=== PATIENT | female | born 1955 | race Caucasian/White ===

== ENCOUNTER → 2017-10-27 16:20 | Outpatient (CLI) | payer BC, SELFPAY ==
[2017-10-27 17:17] LABS: Absolute Lymphocyte Count 1.85 X10^3/ul (0.83-4.51); Absolute Neutrophil Count 2.8 X10^3/uL (2.0-7.7); Basophil# 0.03 X10^3/uL; Basophil% 0.5 % (0-1); Eosinophil# 0.17 X10^3/uL; Eosinophils% 3.1 % (0-5); Hematocrit 40.1 % (37-47); Hemoglobin 12.9 g/dl (12.0-15.0); Lymphocyte # 1.85 X10^3/ul (4.0); Lymphocyte % 33.6 % (19-41); Mean Corp Hgb Conc 32.2 g/gl (32-36); Mean Corpuscular Hgb 29.6 pg (27.0-32.0); Monocyte# 0.61 X10^3/uL; Monocyte% 11.1 % (0-10); Neutrophil # 2.84 X10^3/uL (2.7-7.7); Neutrophil % 51.7 % (47-70); Platelet Count 188 K/mm3 (150-450); RBC Distribution Width CV 12.8 % (11.6-14.6); RBC Distribution Width SD 42.9 fl (35.1-43.9); Red Blood Count 4.36 M/mm3 (4.2-5.4); White Blood Count 5.5 K/mm3 (4.4-11.0)
[2017-10-27 17:22] LABS: POSITIVE COUNT NO; POSITIVE DIFFERENTIAL NO; POSITIVE MORPHOLOGY NO
[2017-10-27 18:05] LABS: AST(SGOT) 24 U/L (15-37); Alanine Aminotransfer ALT/SGPT 32 U/L (13-56); Albumin, Serum 3.9 g/dL (3.2-5.0); Alkaline Phosphatase 93 U/L (45-117); Anion Gap 10 (5-15); BUN 16 mg/dL (7-18); BUN/Creat Ratio 20.8 RATIO (10-20); Calcium,Total 8.4 mg/dL (8.5-10.1); Chloride 102 mmol/L (98-107); Creatinine, Serum 0.77 mg/dL (0.55-1.02); EST Glomerular Filtration Rate 80 mL/min (>60); Est Glom Filt Rate - Afr Amer 97 mL/min (>60); Globulin 3.9 g/dL (2.2-4.2); Glucose 95 mg/dL (74-106); Potassium 3.6 mmol/L (3.5-5.1); Protein, Total 7.8 g/dL (6.4-8.2); Sodium Level 140 mmol/L (136-145); Thyroid Stim Hormone (TSH) 3.19 uIU/mL (0.358-3.74)
[2017-10-29 11:16] LABS: Hep C Antibodies <0.1 s/co ratio (0.0-0.9)
== END ==
PROVIDERS: Visit Provider Family Medicine Geriatric Medicine
DX: I10 Essential (primary) hypertension (principal); E55.9 Vitamin D deficiency, unspecified; Z13.89 Encounter for screening for other disorder
CPT/HCPCS: 36415; 80053; 82306; 84443; 85025; 86803

== ENCOUNTER → 2017-10-30 08:14 | Outpatient (CLI) | payer BC, SELFPAY ==
--- NOTE | 2017-10-30 08:18 | US_ITS ---
STUDY: SUPERFICIAL ULTRASOUND - LEFT LOWER LEG SUPERIOR TO THE ANKLE. REASON FOR EXAM: Female, 62 years old. Swelling and palpable abnormality. TECHNIQUE: A superficial ultrasound was performed with real-time and static segovia-scale imaging. COMPARISON: None. FINDINGS: There is a 3.4 cm x 2.3 cm x 0.6 cm fluid collection with low-level echoes within it corresponding to the palpable abnormality along the lateral aspect of the ankle. US/Ext Non Vasc Limited/Soft Tiss IMPRESSION: The abnormality corresponds to a 3.4 cm x 2.3 cm x 0.6 cm fluid collection. Electronically Signed: Jaxson Noonan MD at 14:07 EDT Tel [phone], Service support ,
== END ==
PROVIDERS: Family Provider Family Medicine Geriatric Medicine; PCP Family Medicine Geriatric Medicine; Visit Provider Family Medicine Geriatric Medicine
DX: R22.42 Localized swelling, mass and lump, left lower limb (principal)
CPT/HCPCS: 76882

== ENCOUNTER 2017-12-28 12:30 | Outpatient (RCR) | payer BC, SELFPAY ==
[2017-12-14 14:37] VITALS: BP 162/78; PULSE 70; RESP 16; TEMP 37.5; BMI 26.6
--- NOTE | 2017-12-14 15:57 | HP.PCM_ITS ---
(1) Left leg swelling Status: Chronic Current Visit: Yes Code(s): M79.89 - Other specified soft tissue disorders (2) Leg edema, left Status: Chronic Current Visit: Yes Code(s): R60.0 - Localized edema (3) Rash and nonspecific skin eruption Status: Chronic Current Visit: Yes Code(s): R21 - Rash and other nonspecific skin eruption (4) Chronic venous insufficiency Status: Chronic Current Visit: Yes Code(s): I87.2 - Venous insufficiency ( chronic) (peripheral) (5) Varicose veins with inflammation Status: Chronic Current Visit: Yes Code(s): I83.10 - Varicose veins of unspecified lower extremity with inflammation (6) Hyperlipidemia Status: Chronic Current Visit: No Code(s): E78.5 - Hyperlipidemia, unspecified (7) Overweight (BMI 25.0-29.9) Status: Chronic Current Visit: Yes Code(s): E66.3 - Overweight History of Present Illness Date of Service: 12/14/17 Chief Complaint: Swelling and edema in the left lower extremity associated with an erythematous rash on the left anterior tibial surface. History of Wound: This is a 62-year-old female who was referred by her health care marketing manager, Dr. Betty Landis. The patient presented to Dr. Landis with swelling and edema in her left lower extremity, associated with a rash on the left anterior tibial surface. The patient was treated with topical steroids, and an Unna boot on the left lower extremity, without resolution of her swelling or erythema. A biopsy was performed by Dr. Landis, which presumably showed eczematous dermatitis. According to Dr. Landis's clinical notes, it was felt that the skin changes did not look like eczematous dermatitis and looks to be a necrobiotic lesion. The eczematous area on the left anterior tibial surface was associated with a nearby palpable mass in the subcutaneous area, which was evaluated by ultrasound on October 30, 2017, with an impression of the abnormality corresponds to a 3.4 cm x 2.3 cm x 0.6 cm fluid collection. The patient was subsequently referred by Dr. Betty Landis, to further evaluate the nodule to see if it has any connection with large varicose vein further up on the left medial leg. The patient sleeps on a flat mattress at night. She is very active. She spends very little time during the day in an idle sitting position. The swelling in her left lower extremity has been present for only 2 weeks. The erythematous, eczematous rash on her left lower extremity has been present for approximately 2 years, and is getting worse. Past Medical History Past Medical History: Chronic Problems Left leg swelling (Chronic) Leg edema, left (Chronic) Rash and nonspecific skin eruption (Chronic) Chronic venous insufficiency (Chronic) Varicose veins with inflammation (Chronic) Hyperlipidemia (Chronic) Overweight (BMI 25.0-29.9) (Chronic) Past Medical History: The patient has a history of hepatitis and rheumatoid arthritis. She also has a history of diet-controlled hyperlipidemia. Her history is negative for myocardial infarction, congestive heart failure, cerebrovascular accident, diabetes mellitus, hypertension, pulmonary disease, renal disease, and thyroid disease. Surgical History: - - The patient underwent an appendectomy in the past. She is a Ab0. Allergies/Adverse Reactions: Allergies Penicillins Adverse Reaction (Verified 12/14/17 14:54) Hives Home Medications: Ambulatory Orders Medication Instructions Recorded Multivitamin 12/14/17 - Family History Paternal - - The patient's father is living, age 96, and suffers from heart disease. Patient's mother at age of 87 from old age. Smoking Status: Never smoker Tobacco Use: Non-smoker Alcohol: Rare Drugs: None Review of Systems Constitutional: Denies: Chills, Fever, Weight Change Eyes: Denies: Pain, Vision Change HEENT: Denies: Difficulty Hearing, Difficulty Swallowing, Sinus Congestion Cardiovascular: Denies: Chest Pain, Palpitations Respiratory: Denies: Cough, Shortness of Breath Gastrointestinal: Denies: Diarrhea, Nausea, Vomiting Genitourinary: Denies: Dysuria, Hematuria Endocrine: Denies: Heat/ Cold Intolerance, Polydipsia, Polyuria Hematologic/ Lymphatic: Denies: Easy Bruising, Easy Bleeding - Physical Exam Vital Signs Temp Pulse Resp BP 99.5 F H 70 16 162/78 H 12/14/17 14:37 12/14/17 14:37 12/14/17 14:37 12/14/17 14:37 General: Alert, Oriented x3, Cooperative, No apparent distress, Well developed, Well nourished HEENT: Atraumatic, PERRLA, EOMI, Normocephalic Oral: Moist Mucosa Neck: Supple, No JVD, Negative Carotid Bruits, Negative Hepatojugular Reflux, No Nodes, No Nuchal Rigidity, Trachea Midline Lungs: Clear to auscultation, Normal air movement, No rhonchi, No wheeze, No rales Cardiovascular: Regular rate, Regular Rhythm, Normal S1, Normal S2, No murmurs Abdomen: Soft, Non Tender, Non-Distended Extremities: No clubbing, No cyanosis, No Calf Tenderness, - - Mild swelling and edema is noted in the left lower extremity. Scattered varicosities are noted in the lower extremities bilaterally. Several large varicosities are noted in the distal left medial thigh. A scar from prior trauma is also noted in the distal left medial thigh. An erythematous eczematous rash is noted on the left anterior tibial surface, measuring 5-6 cm in diameter. The skin, however, is intact. There is no wound or ulceration. Inferior to the eczematous rash, there is a subcutaneous fullness, with no overlying skin changes. Wound Measurements and Assessment WC - Nurse 1 - General Ulcer Measurement Start: 12/14/17 14:09 Freq: Status: Active Protocol: Activity Type Activity Date Activity User E-Sign Co-Sign Detail Recorded Client Recorded Date Recorded By Document 12/14/17 14:37 [id number] 12/14/17 14:49 12/14/17 14:37 Wound Center Nurse 1 [Ulcer Assessment] EDEMA -Combined with other wound No [Edema Assessment] -Lower Limb Edema Present Yes -Right Calf (cm) 38.5 -Right Ankle (cm) 22.4 -Left Calf (cm) 39.5 -Left Ankle (cm) 23.5 WC - Nurse 2 - General Ulcer CM Notes Start: 12/14/17 14:09 Freq: Status: Active Protocol: Activity Type Activity Date Activity User E-Sign Co-Sign Detail Recorded Client Recorded Date Recorded By Document 12/14/17 15:25 [id number] 12/14/17 15:32 12/14/17 15:25 Wound Center Nurse 2 [Procedure/Treatment] EDEMA -Time 15:25 -Correct Patient Yes -Correct Side, Site, Position Yes -Correct Procedure Yes -Procedure Performed No -Bleeding Controlled with NA [See Physician Procedure note for Specifics] Pain Scale: 0-10 Numeric [Pain] -Is Patient Pain Free? Yes Neurological: Cranial nerves II-XII grossly intact, Neuro grossly intact Psych/Mental Status: Normal Affect, Appropriate, Alert and oriented to time, place, person, mood and affect Debridement Note Post-Debridement Measurements/Treatment WC - Nurse 2 - General Ulcer CM Notes Start: 12/14/17 14:09 Freq: Status: Active Protocol: Activity Type Activity Date Activity User E-Sign Co-Sign Detail Recorded Client Recorded Date Recorded By Document 12/14/17 15:25 CRISTINA [id number] 12/14/17 15:32 CRISTINA 12/14/17 15:25 Wound Center Nurse 2 EDEMA -Time 15:25 -Correct Patient Yes -Correct Side, Site, Position Yes -Correct Procedure Yes -Procedure Performed No -Bleeding Controlled with NA Pain Scale: 0-10 Numeric Is Patient Pain Free? Yes No debridement was completed today Assessment/Plan Active Problems Left leg swelling (Chronic) Leg edema, left (Chronic) Rash and nonspecific skin eruption (Chronic) Chronic venous insufficiency (Chronic) Varicose veins with inflammation (Chronic) Overweight (BMI 25.0-29.9) (Chronic) Assessment: This is a 62-year-old female with recent swelling and edema in her left lower extremity. There is an erythematous eczematous rash on the left anterior tibial surface, and an adjacent subcutaneous fullness, which is noted to be a fluid collection based upon a recent ultrasound result. The patient is also undergone recent laboratory studies, which have been reviewed. Results are as follows: Sodium 140, potassium 3.6, chloride 102, BUN 10, BUN 16, creatinine 0.77, glucose 95, calcium 8.4, total bilirubin 0.40, AST 24, ALT 32, alkaline phosphatase 93, total protein 7.8, albumin 3.9, TSH 3.19, white blood count 5.5, hemoglobin 12.9, hematocrit 40.1, platelets 188,000. Plan: The patient has been advised to elevate her lower extremities as much as possible, even during daytime hours. Elevation is to be to heart level, or higher. She is to continue sleeping on a flat mattress at night. Activity has been encouraged. The patient has been discouraged from prolonged idle sitting. She is of reasonably good weight. We are to initiate compression to the left lower extremity by means of SurePress, which will be applied by the patient on a daily basis. The patient is to receive the appropriate instructions for application of the wraps. A venous duplex examination will be obtained, to assess the venous system in the lower extremities. There is question as to whether or not the erythematous eczematous skin changes in the distal left lower extremity are related to the patient's venous disease. We will hope to collaborate with Dr. Landis in terms of managing the patient's skin condition. Further recommendations will ensue, based upon the results of the patient's anticipated venous study. Patient is to return for reevaluation in 2 weeks.
--- NOTE | 2017-12-28 10:54 | VDLE_ITS ---
Reason For Study: Edema RIGHT LEFT CFV is compressible, spontaneous, phasic, CFV is compressible, spontaneous, phasic, competent and demonstrates normal competent, and demonstrates normal augmentation. augmentation. FV is compressible, spontaneous, phasic, FV is compressible, spontaneous, phasic, competent and demonstrates normal competent and demonstrates normal augmentation. augmentation. POP V is compressible, spontaneous, phasic, POP V is compressible, spontaneous, phasic, competent and demonstrates normal competent and demonstrates normal augmentation. augmentation. T/P Trunk is compressible. T/P Trunk is compressible. PTV is compressible. PTV is compressible. RT PerV is compressible. LT PerV is compressible. Rt SFJ is Competent Lt SFJ is Incompetent Rt GSV is Incompetent with reflux greater Lt GSV is Incompetent with reflux greater than 0.5 sec with a diameter of 0.37cm x than 0.5 sec with a diameter of 0.61cm x 0.35cm in the thigh and 0.31cm x 0.30cm in 0.58cm in the thigh and 0.24cm x 0.24cm in the calf the calf Rt SSV is Incompetent with reflux greater Lt SSV is Competent. than 0.5 sec and a diameter of 0.14cm x 0.13cm. Procedure Exam performed in department. A preliminary report was called and/or faxed to [facility]. Interpretation Summary Deep veins of the lower extremities are bilaterally patent and compressible segmentally. There is no evidence of deep vein thrombosis on either side. Valvular competence appears intact within the proximal deep venous systems bilaterally. The greater saphenous veins appear bilaterally patent and compressible segmentally. The right sapheno-femoral junction is competent . The left sapheno- femoral junction is incompetent . Segmental valvular incompetence is noted within the greater saphenous veins bilaterally. The right small saphenous vein is patent and incompetent. The left small saphenous vein is patent and competent. Ordering Physician: Franky Diez Referring Physician: Franky Diez Performed By: Martita Toledo, CAIO, RVT
[2017-12-28 12:34] VITALS: BP 147/80; PULSE 65; RESP 18; TEMP 35.5; BMI 26.6
--- NOTE | 2017-12-28 13:24 | PCM.WC.HP ---
(1) Left leg swelling Status: Chronic Current Visit: Yes Code(s): M79.89 - Other specified soft tissue disorders (2) Leg edema, left Status: Chronic Current Visit: Yes Code(s): R60.0 - Localized edema (3) Rash and nonspecific skin eruption Status: Chronic Current Visit: Yes Code(s): R21 - Rash and other nonspecific skin eruption (4) Chronic venous insufficiency Status: Chronic Current Visit: Yes Code(s): I87.2 - Venous insufficiency (chronic) (peripheral) (5) Varicose veins with inflammation Status: Chronic Current Visit: Yes Code(s): I83.10 - Varicose veins of unspecified lower extremity with inflammation (6) Hyperlipidemia Status: Chronic Current Visit: No Code(s): E78.5 - Hyperlipidemia, unspecified (7) Overweight (BMI 25.0-29.9) Status: Chronic Current Visit: Yes Code(s): E66.3 - Overweight History of Present Illness Date of Service: 12/28/17 Chief Complaint: Swelling and edema in the left lower extremity associated with an erythematous rash on the left anterior tibial surface. History of Wound: This is a 62-year-old female who was referred by her software quality tester, Dr. Betty Landis. The patient presented to Dr. Landis with swelling and edema in her left lower extremity, associated with a rash on the left anterior tibial surface. The patient was treated with topical steroids, and an Unna boot on the left lower extremity, without resolution of her swelling or erythema. A biopsy was performed by Dr. Landis, which presumably showed eczematous dermatitis. According to Dr. Landis's clinical notes, it was felt that the skin changes did not look like eczematous dermatitis and looks to be a necrobiotic lesion. The eczematous area on the left anterior tibial surface was associated with a nearby palpable mass in the subcutaneous area, which was evaluated by ultrasound on October 30, 2017, with an impression of the abnormality corresponds to a 3.4 cm x 2.3 cm x 0.6 cm fluid collection. The patient was subsequently referred by Dr. Betty Landis, to further evaluate the nodule to see if it has any connection with large varicose vein further up on the left medial leg. The patient sleeps on a flat mattress at night. She is very active. She spends very little time during the day in an idle sitting position. The swelling in her left lower extremity had been present for only 2 weeks. The erythematous, eczematous rash on her left lower extremity has been present for approximately 2 years, and was getting worse at the time of the patient's presentation. Past Medical History Past Medical History: Chronic Problems Left leg swelling (Chronic) Leg edema, left (Chronic) Rash and nonspecific skin eruption (Chronic) Chronic venous insufficiency (Chronic) Varicose veins with inflammation (Chronic) Hyperlipidemia (Chronic) Overweight (BMI 25.0-29.9) (Chronic) Surgical History: - - The patient underwent an appendectomy in the past. She is a Ab0. Allergies/Adverse Reactions: Allergies Penicillins Adverse Reaction (Verified 12/14/17 14:54) Hives Home Medications: Ambulatory Orders Medication Instructions Recorded Multivitamin 12/14/17 - Family History Paternal - - The patient's father is living, age 96, and suffers from heart disease. Patient's mother at age of 87 from old age. Smoking Status: Never smoker Tobacco Use: Non-smoker Alcohol: Rare Drugs: None Review of Systems Constitutional: Denies: Chills, Fever, Weight Change Eyes: Denies: Pain, Vision Change HEENT: Denies: Difficulty Hearing, Difficulty Swallowing, Sinus Congestion Cardiovascular: Denies: Chest Pain, Palpitations Respiratory: Denies: Cough, Shortness of Breath Gastrointestinal: Denies: Diarrhea, Nausea, Vomiting Genitourinary: Denies: Dysuria, Hematuria Endocrine: Denies: Heat/ Cold Intolerance, Polydipsia, Polyuria Hematologic/ Lymphatic: Denies: Easy Bruising, Easy Bleeding - Physical Exam Vital Signs Temp Pulse Resp BP 96 F L 65 18 147/80 H 12/28/17 12:34 12/28/17 12:34 12/28/17 12:34 12/28/17 12:34 General: Alert, Oriented x3, Cooperative, No apparent distress, Well developed, Well nourished HEENT: Atraumatic, PERRLA, EOMI, Normocephalic Oral: Moist Mucosa Neck: No JVD Lungs: Normal air movement Abdomen: Non-Distended Extremities: No clubbing, No cyanosis, No Calf Tenderness, - - There appears to be very little or no swelling and edema in the patient's lower extremities. The erythematous patch on the left anterior tibial surface persists, relatively unchanged. Clearly, the swelling and edema in the left lower extremity has diminished, and is corroborated by circumference measurements, which are decreased. There are no open wounds or ulcerations. There is no sign of cellulitis or infection. Skin: No breakdown Wound Measurements and Assessment WC - Nurse 1 - General Ulcer Measurement Start: 12/14/17 14:09 Freq: Status: Active Protocol: Activity Type Activity Date Activity User E-Sign Co-Sign Detail Recorded Client Recorded Date Recorded By Document 12/28/17 12:34 DL [id number] 12/28/17 12:37 DL 12/28/17 12:34 Wound Center Nurse 1 [Ulcer Assessment] EDEMA -Texture (Earline-wound Skin Appearance) No Abnormality -Moisture (Earline-wound Skin Appearance No Abnormality ) -Color (Earline-wound Skin Appearance) No Abnormality -Temperature (Earline-wound Skin No Abnormality Appearance) (Pt Warm) [Edema Assessment] -Right Calf (cm) 37.5 -Right Ankle (cm) 22 -Left Calf (cm) 38.5 -Left Ankle (cm) 22.5 WC - Nurse 2 - General Ulcer CM Notes Start: 12/14/17 14:09 Freq: Status: Active Protocol: Activity Type Activity Date Activity User E-Sign Co-Sign Detail Recorded Client Recorded Date Recorded By Document 12/28/17 13:14 ROSI [id number] 12/28/17 13:15 12/28/17 13:14 Pain Scale: 0-10 Numeric [Pain] -Is Patient Pain Free? Yes Musculoskeletal: No Muscle Wasting Neurological: Cranial nerves II-XII grossly intact, Neuro grossly intact Psych/Mental Status: Normal Affect, Appropriate, Alert and oriented to time, place, person, mood and affect Debridement Note Post-Debridement Measurements/Treatment WC - Nurse 2 - General Ulcer CM Notes Start: 12/14/17 14:09 Freq: Status: Active Protocol: Activity Type Activity Date Activity User E-Sign Co-Sign Detail Recorded Client Recorded Date Recorded By Document 12/14/17 15:25 CRISTINA [id number] 12/14/17 15:32 Document 12/28/17 13:14 [id number] 12/28/17 13:15 12/14/17 12/28/17 15:25 13:14 Wound Center Nurse 2 EDEMA -Time 15:25 -Correct Patient Yes -Correct Side, Site, Position Yes -Correct Procedure Yes -Procedure Performed No -Bleeding Controlled with NA Pain Scale: 0-10 Numeric Is Patient Pain Free? Yes Yes No debridement was completed today Assessment/Plan Active Problems Left leg swelling (Chronic) Leg edema, left (Chronic) Rash and nonspecific skin eruption (Chronic) Chronic venous insufficiency (Chronic) Varicose veins with inflammation (Chronic) Overweight (BMI 25.0-29.9) (Chronic) Assessment: This is a 62-year-old female with recent swelling and edema in her left lower extremity. There is an erythematous eczematous rash on the left anterior tibial surface, for which the patient is under the care of Dr. Betty Landis, software quality tester. The patient is also undergone recent laboratory studies, which have been reviewed. Results are as follows: Sodium 140, potassium 3.6, chloride 102, BUN 10, BUN 16, creatinine 0.77, glucose 95, calcium 8.4, total bilirubin 0.40, AST 24, ALT 32, alkaline phosphatase 93, total protein 7.8, albumin 3.9, TSH 3.19, white blood count 5.5, hemoglobin 12.9, hematocrit 40.1, platelets 188,000. A venous duplex examination has been performed earlier today, and results have been reviewed, and discussed with the patient. Incompetence is noted involving the right great saphenous vein in the right small saphenous vein. The left great saphenous vein is also incompetent. Plan: The patient has been advised to elevate her lower extremities as much as possible, even during daytime hours. Elevation is to be to heart level, or higher. She is to continue sleeping on a flat mattress at night. Activity has been encouraged. The patient has been discouraged from prolonged idle sitting. She is of reasonably good weight. We are to continue compression to the left lower extremity by means of SurePress, which will be applied by the patient on a daily basis. The patient has received the appropriate instructions for application of the wraps. As of today, the patient has been prescribed graduated compression stockings of 20-30 mmHg compression, knee-high length, and will obtain the stockings within the next several days. Compression stockings, once obtained, are to be worn daily. There is question as to whether or not the erythematous eczematous skin changes in the distal left lower extremity are related to the patient's venous disease. We will defer to Dr. Landis in terms of managing the patient's skin condition. But for the swelling in the lower extremities, the patient is relatively asymptomatic, denying significant pain or discomfort in her lower extremities. Therefore, intervention by means of endovenous ablation of the incompetent superficial veins does not appear warranted at this time. We will continue with conservative treatment measures, including leg elevation, avoidance of idle standing and sitting, active lifestyle, compression, and maintenance of optimum weight. Patient is to return for reevaluation in 2 weeks.
--- NOTE | 2017-12-28 13:31 | HP.PCM_ITS ---
(1) Left leg swelling Status: Chronic Current Visit: Yes Code(s): M79.89 - Other specified soft tissue disorders (2) Leg edema, left Status: Chronic Current Visit: Yes Code(s): R60.0 - Localized edema (3) Rash and nonspecific skin eruption Status: Chronic Current Visit: Yes Code(s): R21 - Rash and other nonspecific skin eruption (4) Chronic venous insufficiency Status: Chronic Current Visit: Yes Code(s): I87.2 - Venous insufficiency ( chronic) (peripheral) (5) Varicose veins with inflammation Status: Chronic Current Visit: Yes Code(s): I83.10 - Varicose veins of unspecified lower extremity with inflammation (6) Hyperlipidemia Status: Chronic Current Visit: No Code(s): E78.5 - Hyperlipidemia, unspecified (7) Overweight (BMI 25.0-29.9) Status: Chronic Current Visit: Yes Code(s): E66.3 - Overweight History of Present Illness Date of Service: 12/28/17 Chief Complaint: Swelling and edema in the left lower extremity associated with an erythematous rash on the left anterior tibial surface. History of Wound: This is a 62-year-old female who was referred by her leaf sticker, Dr. Betty Landis. The patient presented to Dr. Landis with swelling and edema in her left lower extremity, associated with a rash on the left anterior tibial surface. The patient was treated with topical steroids, and an Unna boot on the left lower extremity, without resolution of her swelling or erythema. A biopsy was performed by Dr. Landis, which presumably showed eczematous dermatitis. According to Dr. Landis's clinical notes, it was felt that the skin changes did not look like eczematous dermatitis and looks to be a necrobiotic lesion. The eczematous area on the left anterior tibial surface was associated with a nearby palpable mass in the subcutaneous area, which was evaluated by ultrasound on October 30, 2017, with an impression of the abnormality corresponds to a 3.4 cm x 2.3 cm x 0.6 cm fluid collection. The patient was subsequently referred by Dr. Betty Landis, to further evaluate the nodule to see if it has any connection with large varicose vein further up on the left medial leg. The patient sleeps on a flat mattress at night. She is very active. She spends very little time during the day in an idle sitting position. The swelling in her left lower extremity had been present for only 2 weeks. The erythematous, eczematous rash on her left lower extremity has been present for approximately 2 years, and was getting worse at the time of the patient's presentation. Past Medical History Past Medical History: Chronic Problems Left leg swelling (Chronic) Leg edema, left (Chronic) Rash and nonspecific skin eruption (Chronic) Chronic venous insufficiency (Chronic) Varicose veins with inflammation (Chronic) Hyperlipidemia (Chronic) Overweight (BMI 25.0-29.9) (Chronic) Surgical History: - - The patient underwent an appendectomy in the past. She is a Ab0. Allergies/Adverse Reactions: Allergies Penicillins Adverse Reaction (Verified 12/14/17 14:54) Hives Home Medications: Ambulatory Orders Medication Instructions Recorded Multivitamin 12/14/17 - Family History Paternal - - The patient's father is living, age 96, and suffers from heart disease. Patient's mother at age of 87 from old age. Smoking Status: Never smoker Tobacco Use: Non-smoker Alcohol: Rare Drugs: None Review of Systems Constitutional: Denies: Chills, Fever, Weight Change Eyes: Denies: Pain, Vision Change HEENT: Denies: Difficulty Hearing, Difficulty Swallowing, Sinus Congestion Cardiovascular: Denies: Chest Pain, Palpitations Respiratory: Denies: Cough, Shortness of Breath Gastrointestinal: Denies: Diarrhea, Nausea, Vomiting Genitourinary: Denies: Dysuria, Hematuria Endocrine: Denies: Heat/ Cold Intolerance, Polydipsia, Polyuria Hematologic/ Lymphatic: Denies: Easy Bruising, Easy Bleeding - Physical Exam Vital Signs Temp Pulse Resp BP 96 F L 65 18 147/80 H 12/28/17 12:34 12/28/17 12:34 12/28/17 12:34 12/28/17 12:34 General: Alert, Oriented x3, Cooperative, No apparent distress, Well developed, Well nourished HEENT: Atraumatic, PERRLA, EOMI, Normocephalic Oral: Moist Mucosa Neck: No JVD Lungs: Normal air movement Abdomen: Non-Distended Extremities: No clubbing, No cyanosis, No Calf Tenderness, - - There appears to be very little or no swelling and edema in the patient's lower extremities. The erythematous patch on the left anterior tibial surface persists, relatively unchanged. Clearly, the swelling and edema in the left lower extremity has diminished, and is corroborated by circumference measurements, which are decreased. There are no open wounds or ulcerations. There is no sign of cellulitis or infection. Skin: No breakdown Wound Measurements and Assessment WC - Nurse 1 - General Ulcer Measurement Start: 12/14/17 14:09 Freq: Status: Active Protocol: Activity Type Activity Date Activity User E-Sign Co-Sign Detail Recorded Client Recorded Date Recorded By Document 12/28/17 12:34 DL [id number] 12/28/17 12:37 DL 12/28/17 12:34 Wound Center Nurse 1 [Ulcer Assessment] EDEMA -Texture (Earline-wound Skin Appearance) No Abnormality -Moisture (Earline-wound Skin Appearance No Abnormality ) -Color (Earline-wound Skin Appearance) No Abnormality -Temperature (Earline-wound Skin No Abnormality Appearance) (Pt Warm) [Edema Assessment] -Right Calf (cm) 37.5 -Right Ankle (cm) 22 -Left Calf (cm) 38.5 -Left Ankle (cm) 22.5 WC - Nurse 2 - General Ulcer CM Notes Start: 12/14/17 14:09 Freq: Status: Active Protocol: Activity Type Activity Date Activity User E-Sign Co-Sign Detail Recorded Client Recorded Date Recorded By Document 12/28/17 13:14 ROSI [id number] 12/28/17 13:15 12/28/17 13:14 Pain Scale: 0-10 Numeric [Pain] -Is Patient Pain Free? Yes Musculoskeletal: No Muscle Wasting Neurological: Cranial nerves II-XII grossly intact, Neuro grossly intact Psych/Mental Status: Normal Affect, Appropriate, Alert and oriented to time, place, person, mood and affect Debridement Note Post-Debridement Measurements/Treatment WC - Nurse 2 - General Ulcer CM Notes Start: 12/14/17 14:09 Freq: Status: Active Protocol: Activity Type Activity Date Activity User E-Sign Co-Sign Detail Recorded Client Recorded Date Recorded By Document 12/14/17 15:25 CRISTINA [id number] 12/14/17 15:32 Document 12/28/17 13:14 [id number] 12/28/17 13:15 12/14/17 12/28/17 15:25 13:14 Wound Center Nurse 2 EDEMA -Time 15:25 -Correct Patient Yes -Correct Side, Site, Position Yes -Correct Procedure Yes -Procedure Performed No -Bleeding Controlled with NA Pain Scale: 0-10 Numeric Is Patient Pain Free? Yes Yes No debridement was completed today Assessment/Plan Active Problems Left leg swelling (Chronic) Leg edema, left (Chronic) Rash and nonspecific skin eruption (Chronic) Chronic venous insufficiency (Chronic) Varicose veins with inflammation (Chronic) Overweight (BMI 25.0-29.9) (Chronic) Assessment: This is a 62-year-old female with recent swelling and edema in her left lower extremity. There is an erythematous eczematous rash on the left anterior tibial surface, for which the patient is under the care of Dr. Betty Landis, leaf sticker. The patient is also undergone recent laboratory studies, which have been reviewed. Results are as follows: Sodium 140, potassium 3.6, chloride 102, BUN 10, BUN 16, creatinine 0.77, glucose 95, calcium 8.4, total bilirubin 0.40, AST 24, ALT 32, alkaline phosphatase 93, total protein 7.8, albumin 3.9, TSH 3.19, white blood count 5.5, hemoglobin 12.9, hematocrit 40.1, platelets 188,000. A venous duplex examination has been performed earlier today , and results have been reviewed, and discussed with the patient. Incompetence is noted involving the right great saphenous vein in the right small saphenous vein. The left great saphenous vein is also incompetent. Plan: The patient has been advised to elevate her lower extremities as much as possible, even during daytime hours. Elevation is to be to heart level, or higher. She is to continue sleeping on a flat mattress at night. Activity has been encouraged. The patient has been discouraged from prolonged idle sitting. She is of reasonably good weight. We are to continue compression to the left lower extremity by means of SurePress, which will be applied by the patient on a daily basis. The patient has received the appropriate instructions for application of the wraps. As of today, the patient has been prescribed graduated compression stockings of 20-30 mmHg compression, knee-high length, and will obtain the stockings within the next several days. Compression stockings, once obtained, are to be worn daily. There is question as to whether or not the erythematous eczematous skin changes in the distal left lower extremity are related to the patient's venous disease. We will defer to Dr. Landis in terms of managing the patient's skin condition. But for the swelling in the lower extremities, the patient is relatively asymptomatic, denying significant pain or discomfort in her lower extremities. Therefore, intervention by means of endovenous ablation of the incompetent superficial veins does not appear warranted at this time. We will continue with conservative treatment measures, including leg elevation, avoidance of idle standing and sitting, active lifestyle, compression, and maintenance of optimum weight. Patient is to return for reevaluation in 2 weeks.
== END 2017-12-29 23:59 ==
LOC: WC 12:30
PROVIDERS: Visit Provider Surgery
DX: I83.12 Varicose veins of left lower extremity with inflammation (principal); I83.11 Varicose veins of right lower extremity with inflammation; I87.2 Venous insufficiency (chronic) (peripheral); M79.89 Other specified soft tissue disorders; R60.0 Localized edema; E78.5 Hyperlipidemia, unspecified
CPT/HCPCS: 93970; 99212; 99213; G0463

== ENCOUNTER 2018-01-11 10:52 | Outpatient (RCR) | payer BC, SELFPAY ==
[2017-12-30 01:26] VITALS: BP 147/80; PULSE 65; RESP 18; TEMP 35.5
[2018-01-11 12:53] VITALS: BP 136/76; PULSE 75; RESP 18; TEMP 36.7
--- NOTE | 2018-01-11 13:21 | PCM.WC.HP ---
(1) Left leg swelling Status: Chronic Current Visit: Yes Code(s): M79.89 - Other specified soft tissue disorders (2) Leg edema, left Status: Chronic Current Visit: Yes Code(s): R60.0 - Localized edema (3) Rash and nonspecific skin eruption Status: Chronic Current Visit: Yes Code(s): R21 - Rash and other nonspecific skin eruption (4) Chronic venous insufficiency Status: Chronic Current Visit: Yes Code(s): I87.2 - Venous insufficiency (chronic) (peripheral) (5) Varicose veins with inflammation Status: Chronic Current Visit: Yes Code(s): I83.10 - Varicose veins of unspecified lower extremity with inflammation (6) Hyperlipidemia Status: Chronic Current Visit: No Code(s): E78.5 - Hyperlipidemia, unspecified (7) Overweight (BMI 25.0-29.9) Status: Chronic Current Visit: No Code(s): E66.3 - Overweight History of Present Illness Date of Service: 01/11/18 Chief Complaint: Swelling and edema in the left lower extremity associated with an erythematous rash on the left anterior tibial surface. History of Wound: This is a 62-year-old female who was referred by her violin teacher, Dr. Betty Landis. The patient presented to Dr. Landis with swelling and edema in her left lower extremity, associated with a rash on the left anterior tibial surface. The patient was treated with topical steroids, and an Unna boot on the left lower extremity, without resolution of her swelling or erythema. A biopsy was performed by Dr. Landis, which presumably showed eczematous dermatitis. According to Dr. Landis's clinical notes, it was felt that the skin changes did not look like eczematous dermatitis and looks to be a necrobiotic lesion. The eczematous area on the left anterior tibial surface was associated with a nearby palpable mass in the subcutaneous area, which was evaluated by ultrasound on October 30, 2017, with an impression of the abnormality corresponds to a 3.4 cm x 2.3 cm x 0.6 cm fluid collection. The patient was subsequently referred by Dr. Betty Landis, to further evaluate the nodule to see if it has any connection with large varicose vein further up on the left medial leg. The patient sleeps on a flat mattress at night. She is very active. She spends very little time during the day in an idle sitting position. The swelling in her left lower extremity had been present for only 2 weeks. The erythematous, eczematous rash on her left lower extremity has been present for approximately 2-3 years, and was getting worse at the time of the patient's presentation. Past Medical History Past Medical History: Chronic Problems Left leg swelling (Chronic) Leg edema, left (Chronic) Rash and nonspecific skin eruption (Chronic) Chronic venous insufficiency (Chronic) Varicose veins with inflammation (Chronic) Hyperlipidemia (Chronic) Overweight (BMI 25.0-29.9) (Chronic) Surgical History: - - The patient underwent an appendectomy in the past. She is a Ab0. Allergies/Adverse Reactions: Allergies Penicillins Adverse Reaction (Verified 12/14/17 14:54) Hives Home Medications: Ambulatory Orders Medication Instructions Recorded Multivitamin 12/14/17 - Family History Paternal - - The patient's father is living, age 96, and suffers from heart disease. Patient's mother at age of 87 from old age. Smoking Status: Never smoker Tobacco Use: Non-smoker Review of Systems Constitutional: Denies: Chills, Fever, Weight Change Eyes: Denies: Pain, Vision Change HEENT: Denies: Difficulty Hearing, Difficulty Swallowing, Sinus Congestion Cardiovascular: Denies: Chest Pain, Palpitations Respiratory: Denies: Cough, Shortness of Breath Gastrointestinal: Denies: Diarrhea, Nausea, Vomiting Genitourinary: Denies: Dysuria, Hematuria Endocrine: Denies: Heat/ Cold Intolerance, Polydipsia, Polyuria Hematologic/ Lymphatic: Denies: Easy Bruising, Easy Bleeding - Physical Exam Vital Signs Temp Pulse Resp BP 98.0 F 75 18 136/76 H 01/11/18 12:53 01/11/18 12:53 01/11/18 12:53 01/11/18 12:53 General: Alert, Oriented x3, Cooperative, No apparent distress, Well developed, Well nourished HEENT: Atraumatic, PERRLA, EOMI, Normocephalic Oral: Moist Mucosa Neck: No JVD Lungs: Normal air movement Abdomen: Non-Distended Extremities: No clubbing, No cyanosis, No edema, No Calf Tenderness, - - Swelling and edema in the lower extremities is well controlled. There are no open wounds or ulcerations. There is no sign of infection or cellulitis. Skin: - - An erythematous rash persists on the left anterior tibial surface. It is little changed from that which was noted previously. Wound Measurements and Assessment - Nurse 1 - General Ulcer Measurement Start: 01/11/18 12:53 Freq: Status: Active Protocol: Activity Type Activity Date Activity User E-Sign Co-Sign Detail Recorded Client Recorded Date Recorded By Document 01/11/18 12:53 JF [id number] 01/11/18 12:56 01/11/18 12:53 Wound Center Nurse 1 [Edema Assessment] -Lower Limb Edema Present Yes -Right Calf (cm) 38.4 -Right Ankle (cm) 22.2 -Left Calf (cm) 40.2 -Left Ankle (cm) 23.0 WC - Nurse 2 - General Ulcer CM Notes Start: 01/11/18 12:53 Freq: Status: Active Protocol: Activity Type Activity Date Activity User E-Sign Co-Sign Detail Recorded Client Recorded Date Recorded By Document 01/11/18 13:19 JF [id number] 01/11/18 13:19 01/11/18 13:19 Pain Scale: 0-10 Numeric [Pain] -Is Patient Pain Free? Yes Musculoskeletal: No Muscle Wasting Neurological: Cranial nerves II-XII grossly intact, Neuro grossly intact Psych/Mental Status: Normal Affect, Appropriate, Alert and oriented to time, place, person, mood and affect Debridement Note Post-Debridement Measurements/Treatment - Nurse 2 - General Ulcer CM Notes Start: 01/11/18 12:53 Freq: Status: Active Protocol: Activity Type Activity Date Activity User E-Sign Co-Sign Detail Recorded Client Recorded Date Recorded By Document 01/11/18 13:19 JF [id number] 01/11/18 13:19 JF 01/11/18 13:19 Pain Scale: 0-10 Numeric Is Patient Pain Free? Yes No debridement was completed today Assessment/Plan Active Problems Left leg swelling (Chronic) Leg edema, left (Chronic) Rash and nonspecific skin eruption (Chronic) Chronic venous insufficiency (Chronic) Varicose veins with inflammation (Chronic) Assessment: This is a 62-year-old female with recent swelling and edema in her left lower extremity. There is an erythematous eczematous rash on the left anterior tibial surface, for which the patient is under the care of Dr. Betty Landis, violin teacher. The patient is also undergone recent laboratory studies, which have been reviewed. Results are as follows: Sodium 140, potassium 3.6, chloride 102, BUN 10, BUN 16, creatinine 0.77, glucose 95, calcium 8.4, total bilirubin 0.40, AST 24, ALT 32, alkaline phosphatase 93, total protein 7.8, albumin 3.9, TSH 3.19, white blood count 5.5, hemoglobin 12.9, hematocrit 40.1, platelets 188,000. A venous duplex examination has been performed earlier today, and results have been reviewed, and discussed with the patient. Incompetence is noted involving the right great saphenous vein in the right small saphenous vein. The left great saphenous vein is also incompetent. Plan: The patient has been advised to elevate her lower extremities as much as possible, even during daytime hours. Elevation is to be to heart level, or higher. She is to continue sleeping on a flat mattress at night. Activity has been encouraged. The patient has been discouraged from prolonged idle sitting. She is of reasonably good weight. The patient has received her graduated compression stockings of 20-30 mmHg compression, and is wearing on a daily basis. She is quite pleased with the stockings. The rash on the patient's left anterior tibial surface persists, but is not thought to be a manifestation of the patient's venous disease. It appears to be a dermatological problem, and we will defer to Dr. Landis in terms of managing the patient's skin condition. The patient is otherwise asymptomatic, denying significant pain or discomfort in her lower extremities. Therefore, intervention by means of endovenous ablation of the incompetent superficial veins does not appear warranted at this time. We will continue with conservative treatment measures, including leg elevation, avoidance of idle standing and sitting, active lifestyle, compression, and maintenance of optimum weight. Patient is to be discharged from our facility at this time. She will follow-up henceforth on an as-needed basis.
== END 2018-01-29 23:59 ==
LOC: WC 10:52
PROVIDERS: Visit Provider Surgery
DX: I83.10 Varicose veins of unspecified lower extremity with inflammation (principal); I87.2 Venous insufficiency (chronic) (peripheral); M79.89 Other specified soft tissue disorders; R60.0 Localized edema; E78.5 Hyperlipidemia, unspecified
CPT/HCPCS: 99212; G0463

== ENCOUNTER → 2024-08-15 | Outpatient (CLI) | payer MEDICARE, OTHER, SELFPAY ==
--- NOTE | 2024-08-15 12:58 | RAD_ITS ---
PROCEDURE: KNEE 3 VIEWS (RADPAT), 08/15/2024 REASON FOR EXAM: KNEE INJURY TECHNIQUE: AP, lateral, and AP tunnel views of the right knee were obtained. COMPARISON: None FINDINGS: Fracture/dislocation: None visible. Joint space(s): Mild patellofemoral joint and trace medial compartment joint space loss with tiny patellofemoral osteophytes. Soft tissues: Unremarkable. Foreign bodies: None visible. Bone mineralization: Demineralization. RAD/Knee 3 Views IMPRESSION: 1. Demineralization without visible acute displaced fracture. 2. Additional description as above. Reading Location: [id number]
== END | disposition home or self-care (01) ==
LOC: MTRAD 12:58
PROVIDERS: Referring Provider Physician Assistant; Visit Provider Physician Assistant
DX: S89.90XA Unspecified injury of unspecified lower leg, initial encounter (principal)
CPT/HCPCS: 73562